=== PATIENT | female | born 1980 | race Hispanic/Latino ===

== ENCOUNTER 2020-01-30 08:33 | Emergency (ER) | payer MEDICAID, SELFPAY ==
[2020-01-30 08:34] VITALS: BP 162/90; PULSE 85; RESP 16; TEMP 36.9; BMI 49.5
--- NOTE | 2020-01-30 09:03 | ED.DCSUM_ITS ---
History of Present Illness Chief Complaint: Vag Bleeding Informant: Patient Onset: Days Context: Gradual Onset Timing: Continuous Narrative: Patient is a 39-year-old female with history of iron deficiency anemia presenti with abnormal vaginal bleeding. Patient is Djiboutian-speaking and has a friend in the room that translates for her. Patient states she has had heavy bleeding for the past 12 days. She is going through approximately 10 pads a day. States is having passage of clots. She is not as any associated abdominal pain. She states she never had any thing like this before. Patient states her last menst rual period before this was January 01. She is sexually active does not know she is . She notes she did have some pink spotting for 3 days before she started her period on January 17. Patient states she feels fatigued. She has a lightheadedness. She denies any associated vomiting but has had some nausea. Past Medical History - Allergies and Home Meds Allergies/Adverse Reactions: Allergies No Known Allergies Allergy (Verified 01/30/20 08:38) Primary Care Physician: Ethel Kim CNM [Certified Nurse Lining Stitcher] - Past Medical History: - - Iron deficiency anemia Surgical History: no surgical history Lives: Spouse/ Significant Other, With Family Review of Systems General: Reports: Malaise, - - Generalized weakness. Denies: Chills, Fever, Sweats Eyes: Denies: Visual changes - bilaterally, Diplopia ENT: Denies: Rhinorrhea, Sore throat Cardiovascular: Denies: Chest pain, Palpitations Respiratory: Denies: Dyspnea, Cough, Dyspnea on exertion Gastrointestinal: Denies: Abdominal pain, Nausea, Vomiting, Diarrhea, Melena, Hematochezia Genitourinary: Reports: - - Vaginal bleeding. Denies: Dysuria, Hematuria, Frequency Musculoskeletal: Denies: Back pain, Extremity Pain Skin: Denies: Rash, Wounds Neurological: Denies: Headache, Weakness, Numbness Physical Exam Vital Signs/Narrative: Vital Signs Temp Pulse Resp BP 01/30/20 08:34 98.4 F 85 16 162/90 H Inital Vital Signs reviewed: Yes General: Well nourished, Well developed, Obese, No Acute Distress Head: Normocephalic, Atraumatic Eyes: Perrl, EOMI. Negative for: Pale conjunctiva ENT: Moist mucous membranes, No rhinorrhea Neck: Supple, Nontender Cardiovascular: Regular rate, Regular rhythm, No murmurs Respiratory: No distress, CTA bilaterally, Chest nontender Abdomen: Soft, Nontender, Nondistended, Normal bowel sounds : - - Level external exam, cervix is visualized. There is dark red blood pooling and actively draining through the office. No clots are visualized. No cervical motion tenderness no adnexal tenderness present. Back: Nontender, Normal Inspection. Negative for: CVA tenderness Extremities: Nontender, No edema Skin: Normal color, No rash. Negative for: Pallor Neurological: Alert, Oriented x3, Cranial nerves II-XII grossly intact, Normal Strength, Normal Sensation Psychological: Normal affect, Normal Mood Diagnostic/Tx/Re-eval Laboratory Data 01/30/20 01/30/20 01/30/20 09:15 09:15 09:37 WBC 10.9 RBC 4.50 Hgb 12.1 Hct 37.6 MCV 83.6 MCH 26.9 L MCHC 32.2 RDW Std Deviation 39.2 RDW Coeff of Blanche 13.0 Plt Count 336 MPV 9.1 Immature Gran % (Auto) 1.000 H Neut % (Auto) 71.5 H Lymph % (Auto) 19.7 Rice % (Auto) 4.6 Eos % (Auto) 2.9 Baso % (Auto) 0.3 Absolute Neuts (auto) 7.8 H Absolute Lymphs (auto) 2.16 Nucleated RBC % 0 Sodium 138 Potassium 3.8 Chloride 103 Carbon Dioxide 28.0 Anion Gap 7 BUN 12 Creatinine 0.78 Estim Creat Clear Calc 93.23 Est GFR (MDRD) Af Amer 105 Est GFR (MDRD) Non-Af 87 BUN/Creatinine Ratio 15.4 Glucose 159 H Calcium 8.5 Urine Color Urine Clarity Urine pH Ur Specific [place] Urine Protein Urine Glucose (UA) Urine Ketones Urine Occult Blood Urine Nitrite Urine Bilirubin Urine Urobilinogen Ur Leukocyte Esterase Urine RBC Urine WBC Ur Squamous Epith Cells Urine Bacteria Urine Mucus Urine Test Chlam trachomat DNA PCR Negative N.gonorrhoeae DNA (PCR) Negative 01/30/20 01/30/20 09:37 09:37 WBC RBC Hgb Hct MCV MCH MCHC RDW Std Deviation RDW Coeff of Blanche Plt Count MPV Immature Gran % (Auto) Neut % (Auto) Lymph % (Auto) Rice % (Auto) Eos % (Auto) Baso % (Auto) Absolute Neuts (auto) Absolute Lymphs (auto) Nucleated RBC % Sodium Potassium Chloride Carbon Dioxide Anion Gap BUN Creatinine Estim Creat Clear Calc Est GFR (MDRD) Af Amer Est GFR (MDRD) Non-Af BUN/Creatinine Ratio Glucose Calcium Urine Color Red Urine Clarity Cloudy Urine pH 5.0 Ur Specific [place] 1.020 Urine Protein 100 H Urine Glucose (UA) Normal Urine Ketones 5 H Urine Occult Blood 250 H Urine Nitrite Negative Urine Bilirubin Negative Urine Urobilinogen Normal Ur Leukocyte Esterase 25 H Urine RBC > 100 SEEN Urine WBC 0-5 SEEN Ur Squamous Epith Cells 0 SEEN Urine Bacteria RARE Urine Mucus 0 SEEN Urine Test Negative Chlam trachomat DNA PCR N.gonorrhoeae DNA (PCR) - Medical Decision Making Is evaluated for abnormal vaginal bleeding. She is had 12 days of bleeding which is very typical for her urine is negative. I am not concerned for missed or inevitable miscarriage. Her abdomen is soft and nontender. She not having a significant associated pain. Hemoglobin is checked which is normal. She is otherwise well-appearing. She is given IV fluids in the emergency room. Urine is sent for gonorrhea and chlamydia however I have a low suspicion for this. Because of the amount of bleeding that patient is having on pelvic exam I did discuss the case with Retirement Plan Counselor scale shooter on-call, Ethel Kim. She is comfortable with outpatient follow-up. Patient be started on NSAID therapy in an attempt to stem the bleeding. Patient is given return precautions. Exit counseling is done using destination imagination coordinator feature on the patient's phone. ED Disposition - Plan for ED Patient: Disposition: Home or Assisted Living Diagnosis: Dysfunctional uterine bleeding Instructions: ED Bleed Irregular Vaginal Prescriptions: Ibuprofen [Motrin] 600 mg PO Q6H PRN PRN #20 tab PRN Reason: Bleeding Prescription Printed Referrals: Ethel Kim CNM [Certified Nurse Lining Stitcher] - Print Language: Djiboutian
[2020-01-30 09:32] LABS: Absolute Lymphocyte Count 2.16 X10^3/uL (0.83-4.51); Absolute Neutrophil Count 7.8 X10^3/uL (2.0-7.7); Basophil# 0.03 X10^3/uL; Basophil% 0.3 % (0-1); Eosinophil# 0.32 X10^3/uL; Eosinophils% 2.9 % (0-5); Hematocrit 37.6 % (37-47); Hemoglobin 12.1 g/dL (12.0-15.0); Lymphocyte # 2.16 X10^3/ul (4.0); Lymphocyte % 19.7 % (19-41); Mean Corp Hgb Conc 32.2 g/dL (32-36); Mean Corpuscular Hgb 26.9 pg (27.0-32.0); Mean Corpuscular Volume 83.6 fL (81-99); Mean Platelet Vol. 9.1 fl (6.2-12.0); Monocyte% 4.6 % (0-10); NRBC Flagged by Analyzer 0 % (0-5); Neutrophil # 7.82 X10^3/uL (2.7-7.7); Neutrophil % 71.5 % (47-70); Platelet Count 336 K/mm3 (150-450); RBC Distribution Width SD 39.2 fl (35.1-43.9); White Blood Count 10.9 K/mm3 (4.4-11.0)
[2020-01-30] MEDS: 0.9% Normal Saline 1,000 ML 1000 ML IV (09:41)
[2020-01-30 09:45] LABS: Anion Gap 7 (5-15); BUN 12 mg/dL (7-18); BUN/Creat Ratio 15.4 RATIO (10-20); Calcium,Total 8.5 mg/dL (8.5-10.1); Chloride 103 mmol/L (98-107); Creatinine, Serum 0.78 mg/dL (0.55-1.02); EST Glomerular Filtration Rate 87 mL/min (>60); Est Glom Filt Rate - Afr Amer 105 mL/min (>60); Estimated Creatinine Clearance 93.23 ml/min; Glucose 159 mg/dL (74-106); Potassium 3.8 mmol/L (3.5-5.1); Sodium Level 138 mmol/L (136-145)
[2020-01-30 09:46] LABS: Mucous, Urine 0 SEEN /hpf (<or=2+); Squamous Epithelial Cells - UA 0 SEEN /hpf (5-10)
[2020-01-30 09:47] LABS: Color, Urine Red (Yellow); Glucose, Dipstick Normal (Normal); Ketone-Dipstick 5 mg/dl (Negative); Leukocyte Esterase-Dipstick 25 /ul (Negative); Nitrite-Dipstick Negative (Negative); Occult Blood-Urine 250 /ul (Negative); Protein-Dipstick 100 mg/dl (Negative); Urine Bilirubin Dipstick Negative (Negative); Urine Clarity Cloudy (Clear); Urine Urobilinogen Normal (Normal)
[2020-01-30 09:50] LABS: Internal QC Validated? YES +Cl - CLEAR BKGD; Pregnancy, Urine Negative Negative
[2020-01-30 09:54] LABS: Bacteria RARE /hpf (None Seen); Red Blood Cells-Urine > 100 SEEN /hpf (0-5); White Blood Cells 0-5 SEEN /hpf (0-5)
[2020-01-30 11:18] LABS: Chlamydia Trachomatis by PCR Negative (Negative); Neisserai gonorrhoeae by PCR Negative (Negative); Probe Check PASS; Sample Adequacy Control PASS; Specimen Processing Control PASS
[2020-01-30 11:58] VITALS: BP 136/57; PULSE 84; RESP 16; O2SAT 97
== END 2020-01-30 12:03 | disposition home or self-care (01) ==
PROVIDERS: Emergency Provider Emergency Medicine
DX: N93.8 Other specified abnormal uterine and vaginal bleeding (principal); R42 Dizziness and giddiness; E66.9 Obesity, unspecified
CPT/HCPCS: 80048; 81001; 81025; 85025; 87491; 87591; 96360; 99283; J7030; A4216

== ENCOUNTER 2020-04-04 10:50 | Emergency (ER) | payer MEDICAID, SELFPAY ==
[2020-04-04 10:51] VITALS: BP 147/80; PULSE 80; RESP 16; TEMP 36.3; O2SAT 99; BMI 47.9
--- NOTE | 2020-04-04 10:56 | EKG12_ITS ---
Test Reason : Blood Pressure : / mmHG Vent. Rate : 085 BPM Atrial Rate : 085 BPM P-R Int : 154 ms QRS Dur : 090 ms QT Int : 392 ms P-R-T Axes : 050 055 012 degrees QTc Int : 466 ms Normal sinus rhythm Normal ECG Confirmed by PHILLIP JACOBSON, VALE ([id number]), video tape editor CAESAR MEDINA ([id number]) on 04/10/2020 11:47:17 AM Referred By: DARREN Confirmed By:VALE FISHER MD
--- NOTE | 2020-04-04 11:09 | ED.DCSUM_ITS ---
History of Present Illness Chief Complaint: Chest Pain Informant: Patient, Family Narrative: 39-year-old Wallisian-speaking female presenting with what she describes as very mild chest pain in the center of her chest as well as some dizziness. She states that this started yesterday. She had intermittent episodes that last for few minutes. She states that she has not had any medical problems. She takes no medications at home. No cardiac history. Denies history of DVT/PE. No recent travel, history of cancer, recent surgery or immobilization, exogenous hormone use. States is not related to food. Nothing makes it better or worse. Lead Process Engineer pad was used for history. Past Medical History - Allergies and Home Meds Allergies/Adverse Reactions: Allergies No Known Allergies Allergy (Verified 04/04/20 10:50) Primary Care Physician: Care Physician,No Primary [Primary Care Provider] - Past Medical History: - - Patient denies significant past medical history. Surgical History: no surgical history, - - Lives: Spouse/ Significant Other Smoking Status: Unknown if ever smoked Alcohol: None Drugs: None Review of Systems General: Denies: Chills, Fever, Sweats Eyes: Denies: Visual changes - bilaterally, Diplopia ENT: Denies: Rhinorrhea, Sore throat Cardiovascular: Reports: Chest pain Respiratory: Denies: Dyspnea, Cough, Dyspnea on exertion Gastrointestinal: Reports: Nausea. Denies: Abdominal pain, Vomiting, Diarrhea, Melena, Hematochezia Genitourinary: Denies: Dysuria, Hematuria, Frequency Musculoskeletal: Denies: Back pain, Extremity Pain Skin: Denies: Rash, Wounds Neurological: Reports: Headache, - - Dizziness. Denies: Parasthesia, Numbness Physical Exam Vital Signs/Narrative: Vital Signs Temp Pulse Resp BP Pulse Ox 04/04/20 10:51 97.4 F L 80 16 147/80 H 99 Inital Vital Signs reviewed: Yes General: Obese, No Acute Distress Head: Normocephalic, Atraumatic Eyes: Perrl, EOMI. Negative for: Pale conjunctiva ENT: Moist mucous membranes, No rhinorrhea Cardiovascular: Regular rate, Regular rhythm, No murmurs Respiratory: No distress, CTA bilaterally, Chest nontender Extremities: Nontender, No edema. Negative for: Calf Tenderness Skin: Normal color, No rash. Negative for: Diaphoresis Neurological: Alert, Oriented x3 Psychological: Normal affect Diagnostic/Tx/Re-eval Clinical Impression(s) from Imaging Studies Chest X-Ray 04/04/20 11:35 IMPRESSION: Normal x-ray examination of the chest. Electronically Signed: Mino Mart MD at 11:51 EDT Tel , Service support , Laboratory Data 04/04/20 04/04/20 04/04/20 11:26 11:26 11:26 WBC 10.4 RBC 4.97 Hgb 12.4 Hct 39.5 MCV 79.5 L MCH 24.9 L MCHC 31.4 L RDW Std Deviation 37.6 RDW Coeff of Blanche 13.3 Plt Count 369 MPV 9.4 Immature Gran % (Auto) 1.400 H Neut % (Auto) 70.7 H Lymph % (Auto) 20.4 [place] % (Auto) 4.7 Eos % (Auto) 2.5 Baso % (Auto) 0.3 Absolute Neuts (auto) 7.3 Absolute Lymphs (auto) 2.11 Nucleated RBC % 0 D-Dimer Quant (PE/DVT) 0.44 Sodium 134 L Potassium 3.9 Chloride 101 Carbon Dioxide 27.0 Anion Gap 6 BUN 11 Creatinine 0.82 Estim Creat Clear Calc 92.00 Est GFR (MDRD) Af Amer 98 Est GFR (MDRD) Non-Af 81 BUN/Creatinine Ratio 13.3 Glucose 298 H Calcium 9.1 Troponin I < 0.015 04/04/20 14:40 WBC RBC Hgb Hct MCV MCH MCHC RDW Std Deviation RDW Coeff of Blanche Plt Count MPV Immature Gran % (Auto) Neut % (Auto) Lymph % (Auto) [place] % (Auto) Eos % (Auto) Baso % (Auto) Absolute Neuts (auto) Absolute Lymphs (auto) Nucleated RBC % D-Dimer Quant (PE/DVT) Sodium Potassium Chloride Carbon Dioxide Anion Gap BUN Creatinine Estim Creat Clear Calc Est GFR (MDRD) Af Amer Est GFR (MDRD) Non-Af BUN/Creatinine Ratio Glucose Calcium Troponin I < 0.015 - Rhythm Strip Rhythm Strip: Sinus Rhythm Rate: 85 Ectopy: None - EKG Initial EKG Interpretation: Sinus Rhythm, No Acute Injury Pattern Follow-up EKG Interpretation: Sinus Rhythm, No Acute Injury Pattern Prior: Unchanged - Medical Decision Making 39-year-old female presenting with some very mild chest pain as well as some di zziness. She states that she is not had this before. She has no cardiac history. Her heart score is a 1 for obesity. She has no other medical problems. No DVT/PE risk factors. She is PERC negative. Vital signs are stable and she is afebrile. She has normal blood work-up with 2 normal EKGs and 2 - troponins. I believe she is safe to be discharged home at this time. Patient was given strict return precautions. At all times the automotive parts interpreter pad was used to communicate. She had no further questions. Impression: 1. Chest pain 2. Dizziness ED Disposition - Plan for ED Patient: Disposition: Home or Assisted Living Instructions: ED Dizziness UKO, ED Chest Pain Noncardiac Ch Prescriptions: Meclizine HCl 25 mg PO Q8H PRN PRN #30 tab.chew PRN Reason: Dizziness Transmission Status: Pending to [facility] Referrals: Care Physician,No Primary [Primary Care Provider] - Print Language: Wallisian
[2020-04-04 11:32] LABS: Absolute Lymphocyte Count 2.11 X10^3/uL (0.83-4.51); Absolute Neutrophil Count 7.3 X10^3/uL (2.0-7.7); Basophil# 0.03 X10^3/uL; Basophil% 0.3 % (0-1); Eosinophil# 0.26 X10^3/uL; Eosinophils% 2.5 % (0-5); Hematocrit 39.5 % (37-47); Hemoglobin 12.4 g/dL (12.0-15.0); Lymphocyte # 2.11 X10^3/ul (4.0); Lymphocyte % 20.4 % (19-41); Mean Corp Hgb Conc 31.4 g/dL (32-36); Mean Corpuscular Hgb 24.9 pg (27.0-32.0); Mean Corpuscular Volume 79.5 fL (81-99); Mean Platelet Vol. 9.4 fl (6.2-12.0); Monocyte# 0.49 X10^3/uL; Monocyte% 4.7 % (0-10); NRBC Flagged by Analyzer 0 % (0-5); Neutrophil # 7.31 X10^3/uL (2.7-7.7); Neutrophil % 70.7 % (47-70); Platelet Count 369 K/mm3 (150-450); RBC Distribution Width CV 13.3 % (11.6-14.6); RBC Distribution Width SD 37.6 fl (35.1-43.9); Red Blood Count 4.97 M/mm3 (4.2-5.4); White Blood Count 10.4 K/mm3 (4.4-11.0)
--- NOTE | 2020-04-04 11:35 | RAD_ITS ---
STUDY: X-RAY CHEST REASON FOR EXAM: Female, 39 years old. CHEST PAINS WITH DIZZYNESS SINCE YESTERDAY. TECHNIQUE: Single AP portable view of the chest. COMPARISON: None. FINDINGS: The lungs are clear and expanded. There is no demonstrated pleural abnormality. Normal size heart. Normal mediastinum and rosalina. Normal visualized pulmonary arteries. Normal visualized aortic arch and descending thoracic aorta. Normal visualized thoracic spine. Normal visualized ribs, clavicles, and shoulders. There is no demonstrated abnormality of the visualized soft tissue structures of the upper abdomen. RAD/Chest 1 View (Portable) IMPRESSION: Normal x-ray examination of the chest. Electronically Signed: Mino Mart MD at 11:51 EDT Tel , Service support ,
[2020-04-04 11:48] LABS: D-Dimer Quantitative (DVT/PE) 0.44 FEU/ug/m (0.27-0.49)
[2020-04-04 11:49] LABS: Anion Gap 6 (5-15); BUN 11 mg/dL (7-18); BUN/Creat Ratio 13.3 RATIO (10-20); Calcium,Total 9.1 mg/dL (8.5-10.1); Chloride 101 mmol/L (98-107); Creatinine, Serum 0.82 mg/dL (0.55-1.02); EST Glomerular Filtration Rate 81 mL/min (>60); Est Glom Filt Rate - Afr Amer 98 mL/min (>60); Glucose 298 mg/dL (74-106); Potassium 3.9 mmol/L (3.5-5.1); Sodium Level 134 mmol/L (136-145)
[2020-04-04] MEDS: proMETHazine 25 MG/ML Syringe 12.5 MG IM (12:16)
[2020-04-04 12:50] VITALS: BP 148/81; PULSE 83; RESP 14; O2SAT 98
--- NOTE | 2020-04-04 14:25 | EKG12_ITS ---
Test Reason : REPEAT Blood Pressure : / mmHG Vent. Rate : 085 BPM Atrial Rate : 085 BPM P-R Int : 140 ms QRS Dur : 090 ms QT Int : 382 ms P-R-T Axes : 030 062 001 degrees QTc Int : 454 ms Normal sinus rhythm Nonspecific T wave abnormality Confirmed by PHILLIP JACOBSON, VALE ([id number]), editorial writer CAESAR MEDINA ([id number]) on 04/10/2020 11:47:30 AM Referred By: POLA Confirmed By:VALE FISHER MD
[2020-04-04 15:00] VITALS: BP 138/75; PULSE 78; RESP 16; O2SAT 98
[2020-04-04 15:39] VITALS: BP 125/76; PULSE 90; RESP 16; O2SAT 97
== END 2020-04-04 15:39 | disposition home or self-care (01) ==
PROVIDERS: Emergency Provider Student in an Organized Health Care Education/Training Program
DX: R07.9 Chest pain, unspecified (principal); R42 Dizziness and giddiness; E66.9 Obesity, unspecified
CPT/HCPCS: 71045; 80048; 84484; 85025; 85379; 93005; 96372; 99285

== ENCOUNTER 2022-03-06 10:03 | Emergency (ER) | payer MEDICAID, SELFPAY ==
[2022-03-06 10:05] VITALS: BP 139/75; PULSE 78; RESP 16; TEMP 36.2; O2SAT 100; BMI 45.9
--- NOTE | 2022-03-06 10:49 | EDS_ITS ---
HPI History of Present Illness Chief Complaint: Dizziness Detail of Chief Complaint: Fatigue and tiredness Informant: patient Onset/Context/Timing Onset: Days Context: Gradual Onset Timing: Continuous Current Severity: Mild Maximum Severity: Mild Narrative Narrative: 41-year-old female states that she has a history of an anemia and diabetes. She speaks [place] Irish and is limited Sinhala so we will use the cutter hand iPad. States that she has had a few palpitations. Denies any nausea, vomiting or diarrhea. Denies any fever or chills. Denies any dysuria. No melena or heavy menstrual periods. She has had anemia before but has never needed a blood transfusion. She has had no recent hospitalization. Prior similar symptoms: Yes Recent Illness/Hospitalization: No PFSH PFS Medical History (Updated 03/06/22 @ 13:[address] Gregory Cohen MD) Diabetes Home Medications meclizine 25 mg chewable tablet 25 mg PO Q8H PRN PRN Dizziness ##30 04/04/20 [Rx Last Taken Unknown] Allergy/AdvReac Type Severity Reaction Status Date / Time No Known Allergies Allergy Verified 03/06/22 10:05 Social History Smoking Status: Never smoker ROS ROS ED ROS Narrative Tired. Fatigue. Palpitations. Review of Systems ROS Unobtainable: Denies due to encephalopathy Constitutional Constitutional ED: Denies chills or fever(s) Eyes Eyes: Denies blurry vision ENT ENT ED: Denies ear pain Cardiovascular Cardiovascular: Denies chest pain Respiratory/Chest Respiratory/Chest: Denies cough or dyspnea Gastrointestinal Gastrointestinal: Denies abdominal pain Genitourinary Genitourinary ED: Denies dysuria or hematuria Musculoskeletal Musculoskeletal: Denies arthralgias Integumentary Denies abscess Neurologic Neurologic: Denies headache(s) Psychiatric Psychiatric: Denies anxiety or depression Hematologic/Lymphatic Hematologic/Lymphatic: Reports anemia Allergic/Immunologic Allergic/Immunologic ED: Denies mouth swelling or tongue swelling EXAM Physical Exam Narrative Exam Narrative: 41-year-old female. Vital signs stable afebrile. Pulse ox high percent on room air no signs hypoxia. No distress. H EENT exam unremarkable. Moist Riis members. Neck nontender no lymphadenopathy. Lungs clear to auscultation. Heart regular rhythm no murmur. Abdomen soft nontender normal bowel sounds no peritoneal signs. Moving all 4 extremities. 5/5 nitroglycerin separator operator strength. Dorsi plantarflexion intact. Neurologically she is awake and alert with no focal motor deficits. Normal speech. Const Vital Signs: 03/06/22 10:05 03/06/22 10:56 Temperature 97.1 F L Temperature Source Temporal Pulse Rate 78 Respiratory Rate 16 Respiratory Effort Normal Non-Labored Respiratory Pattern Normal Blood Pressure 139/75 H Blood Pressure Mean 96 Pulse Ox 100 Oxygen Delivery Method Room Air Positive well nourished, well developed and obese; Negative for cachectic, contractures or unkempt General Appearance ED: well developed and NAD; Negative for unkempt, cachectic, contractures, cyanotic or diaphoretic Nutritional Appearance: obese; Negative for cachectic HEENT Reports moist mucous membranes; Denies dry mucous membranes Negative for trauma or tenderness Mouth ED: No dry mucous membranes Mouth: No dry mucous membranes Eyes PERRL and EOMs intact bilaterally General Eye ED: Negative for pale conjunctiva or scleral icterus Neck no lymphadenopathy, supple and no JVD General: Negative for tenderness Lymph Lymphatic: Negative for other Chest Wall inspection of chest normal and palpation of chest normal Chest: Negative for other Resp normal respiratory effort and clear to auscultation bilaterally Effort and Inspection: Negative for retractions Auscultation: Negative for rales Cardio regular rate, regular rhythm, S1 normal heart sound, S2 normal heart sound and no murmurs Palpation: Negative for palpable S3 Rate: Negative for bradycardia Rhythm: Negative for abnormal rhythm GI normal to inspection, nondistended, normoactive bowel sounds, non-tender, non- distended and no masses Inspection: Negative for abdominal distention Auscultation: normoactive bowel sounds Palpation: soft; Negative for tender Bladder / Kidney Exam: No other Back/Spine no CVA tenderness General Back: Negative for CVA tenderness Cervical Spine: Negative for cervical spine tenderness Thoracic Spine / Upper Back: Negative for thoracic spinal tenderness Lumbar Spine / Lower Back: Negative for lumbar spinal tenderness Extremity normal to inspection General Extremety ED: Negative for edema or tenderness General Extremity: Negative for edema Neuro oriented x3, CN's II-XII intact bilaterally and no sensory deficits noted Sensorium / Orientation: alert; Negative for orientation impaired, lethargic or stuporous Motor Exam: strength 5/5 throughout Psych mental status grossly normal Appearance: Negative for unkempt Attitude: No agitated Mood & Affect: Negative for depressed, anxious or tearful Skin no rashes or lesions noted and no wounds Lesions: No lesion noted Rashes: No rashes noted Trauma: Negative for abrasion Wounds: Negative for wounds noted MDM MDM MDM Narrative Medical decision making narrative: 41-year-old female complaining of fatigue and being tired. Exam is benign. Screening labs are being obtained. Repeat exam patient is doing well. We went over her test results between the patient, the cutter hand and myself. She will be discharged home to follow-up with her primary care provider. Lab Data Attestation: I reviewed the patient's lab results. Lab results narrative: CBC shows white count 8.58 hemoglobin 11.7 hematocrit 38. Her last hemoglobin on our computer was 12.1. Just a mild anemia. Platelets 312. Electrolytes unremarkable gap of 5 normal BUN and creatinine. Glucose 115. Labs: Laboratory Results - last 24 hr 03/06/22 03/06/22 11:10 11:10 WBC 8.5 RBC 4.88 Hgb 11.7 L Hct 38.2 MCV 78.3 L MCH 24.0 L MCHC 30.6 L RDW Std Deviation 42.5 RDW Coeff of Blanche 15.1 H Plt Count 312 MPV 9.6 Immature Gran % (Auto) 0.600 Neut % (Auto) 72.2 H Lymph % (Auto) 19.0 [place] % (Auto) 5.0 Eos % (Auto) 3.0 Baso % (Auto) 0.2 Absolute Neuts (auto) 6.2 Absolute Lymphs (auto) 1.62 Nucleated RBC % 0 Sodium 141 Potassium 4.0 Chloride 108 H Carbon Dioxide 28.0 Anion Gap 5 BUN 14 Creatinine 0.75 Estim Creat Clear Calc 102.12 Est GFR (MDRD) Af Amer 108 Est GFR (MDRD) Non-Af 89 BUN/Creatinine Ratio 18.6 Glucose 115 H Calcium 9.0 Discharge Plan Triage Chief Complaint: Dizziness ED Provider: Gregory Cohen Dx/Rx/DC Orders Clinical Impression: Fatigue, Anemia Instructions: Anemia Prescriptions: No Action meclizine 25 MG tablet,chewable 25 mg PO Q8H PRN PRN (Reason: Dizziness) Qty: 30 0RF Primary Care Provider: Milton Jean Referrals: Milton Jean MD [Primary Care Provider] - 1 Week if not improving Activity Restrictions/Additional Instructions: Follow-up with your primary care physician. Today your labs and EKG were unremarkable. Your hemoglobin was slightly low at 11.7 but in the past you have were 12.1 which is very similar. Print Language: [place] Irish Disposition Disposition: Home, Self Care
[2022-03-06 11:25] LABS: Absolute Lymphocyte Count 1.62 X10^3/uL (0.83-4.51); Absolute Neutrophil Count 6.2 X10^3/uL (2.0-7.7); Basophil# 0.02 X10^3/uL; Basophil% 0.2 % (0-1); Eosinophil# 0.26 X10^3/uL; Hematocrit 38.2 % (37-47); Hemoglobin 11.7 g/dL (12.0-15.0); Lymphocyte # 1.62 X10^3/ul (0.83-4.51); Mean Corp Hgb Conc 30.6 g/dL (32-36); Mean Corpuscular Volume 78.3 fL (81-99); Mean Platelet Vol. 9.6 fl (6.2-12.0); Monocyte# 0.43 X10^3/uL; NRBC Flagged by Analyzer 0 % (0-5); Neutrophil # 6.15 X10^3/uL (2.7-7.7); Neutrophil % 72.2 % (47-70); Platelet Count 312 K/mm3 (150-450); RBC Distribution Width CV 15.1 % (11.6-14.6); RBC Distribution Width SD 42.5 fl (35.1-43.9); Red Blood Count 4.88 M/mm3 (4.2-5.4); White Blood Count 8.5 K/mm3 (4.4-11.0)
[2022-03-06 11:38] LABS: Anion Gap 5 (5-15); BUN 14 mg/dL (7-18); BUN/Creat Ratio 18.6 RATIO (10-20); Chloride 108 mmol/L (98-107); Creatinine, Serum 0.75 mg/dL (0.55-1.02); EST Glomerular Filtration Rate 89 mL/min (>60); Est Glom Filt Rate - Afr Amer 108 mL/min (>60); Estimated Creatinine Clearance 102.12 ml/min; Glucose 115 mg/dL (74-106); Sodium Level 141 mmol/L (136-145)
[2022-03-06 13:43] VITALS: BP 121/75; PULSE 74; RESP 16
== END 2022-03-06 13:58 | disposition home or self-care (01) ==
PROVIDERS: Emergency Provider Emergency Medicine; PCP Family Medicine; Visit Provider Emergency Medicine
DX: D64.9 Anemia, unspecified (principal); E11.9 Type 2 diabetes mellitus without complications; R53.83 Other fatigue
CPT/HCPCS: 80048; 85025; 93005; 99283; A4216